=== PATIENT | female | born 1970 | race Caucasian/White ===

== ENCOUNTER 2017-05-04 18:14 | Emergency (ER) | payer OTHER, MEDICAID ==
[~2017-05-04] VITALS: Ht 157.5 cm; Wt 126.1 kg
[~2017-05-04 18:14] MED LIST: DEPAKOTE; OLAN15TA3 PO
[2017-05-04 18:30] VITALS: BP_SYST 156
--- NOTE | 2017-05-04 18:37 | NUR ---
Patient triaged and placed in waiting room. VSS and patient appears in no acute distress at this time. Accompanied by SELF, awaiting available bed, and MD notified of need for MSE.
--- NOTE | 2017-05-04 19:50 | NUR ---
Placed in room 06 . placed in chair for exam, patient refusing to sit in bed, states chair is a better position on comfort. Report given to OSKAR Rdz.
--- NOTE | 2017-05-04 20:00 | NUR ---
Patient AOx4, ambulatory, presents to ER with complaint of left knee pain x1 week. Patient states that she picked up a bag of groceries and a liter bottle of soda fell on her left knee. Swelling and discoloration noted to site. No other symptoms or complaints at this time.
--- NOTE | 2017-05-04 20:02 | NUR ---
ARMAND Candelario at bedside for medical evaluation.
[2017-05-04 20:40] VITALS: BP_SYST 148
--- NOTE | 2017-05-04 20:40 | NUR ---
Patient given written and verbal discharge instructions and verbalizes understanding. ER MD Dr. Candelario discussed with patient the results and treatment provided. Patient in stable condition. ID arm band removed. Patient educated on pain management and to follow up with PMD. Pain Scale 2/10, pt states pain is tolerable, ambulating w/ crutches and knee immobilizer in place. Opportunity for questions provided and answered.
== END 2017-05-04 20:40 | disposition home or self-care (01) ==
LOC: SED 18:14
DX: S80.02XA Contusion of left knee, initial encounter (principal); I10 Essential (primary) hypertension; F17.200 Nicotine dependence, unspecified, uncomplicated; Z86.59 Personal history of other mental and behavioral disorders; Z88.0 Allergy status to penicillin; Z71.6 Tobacco abuse counseling; W20.8XXA Other cause of strike by thrown, projected or falling object, initial encounter; Y93.89 Activity, other specified; Y92.89 Other specified places as the place of occurrence of the external cause; Y99.8 Other external cause status
CPT/HCPCS: 73564; 99284

== ENCOUNTER 2019-04-13 07:30 | Inpatient (IN) | payer OTHER, MEDICAID ==
[~2019-04-13] VITALS: Ht 154.9 cm; Wt 140.2 kg
[2019-04-13 07:38] VITALS: BP_SYST 150
[2019-04-13] MEDS ORDERED: NITROGLYCERIN 1 INCH (GM) OINT. TD ONE (07:45)
[2019-04-13] MEDS ORDERED: NITROGLYCERIN 250 ML IV ONE (07:45)
[2019-04-13] MEDS ORDERED: NITROGLYCERIN 0.4 MG TAB.SUBL SL ONE (07:45)
[2019-04-13] MEDS ORDERED: ASPIRIN 81 MG TAB.CHEW PO ONE (07:45)
[2019-04-13 08:34] LABS: BASOPHILS % (AUTO) 0.5 % (0.0-2.0); EOSINOPHILS # (AUTO) 0.1 K/uL (0.0-0.4); EOSINOPHILS % (AUTO) 1.7 % (0.0-4.0); HEMATOCRIT 38.5 % (36-48); HEMOGLOBIN 12.7 g/dL (12.0-16.0); LYMPHOCYTES # (AUTO) 1.8 K/uL (1.0-5.5); LYMPHOCYTES % (AUTO) 24.6 % (20.5-51.5); MEAN CORPUSCULAR HEMOGLOBIN 27 pg (27-31); MEAN CORPUSCULAR HGB CONC 33 % (32-36); MEAN CORPUSCULAR VOLUME 82 fL (79.0-98.0); MONOCYTES # (AUTO) 0.5 K/uL (0.0-1.0); MONOCYTES % (AUTO) 7.4 % (1.7-9.3); NEUTROPHILS # (AUTO) 4.9 K/uL (1.8-7.7); NEUTROPHILS % (AUTO) 65.8 % (40.0-70.0); PLATELET COUNT (AUTO) 277 K/uL (130-430); RED BLOOD CELL COUNT(AUTO) 4.67 MIL/uL (4.2-6.2); WHITE BLOOD COUNT (AUTO) 7.4 K/uL (4.8-10.8)
[2019-04-13 08:45] LABS: CALCIUM 9.9 mg/dL (8.4-11.0); CREATININE 0.54 mg/dL (0.55-1.30); POTASSIUM 4.3 mmol/L (3.5-5.1)
[2019-04-13 09:06] LABS: ALBUMIN 2.7 g/dL (3.4-4.8); TOTAL BILIRUBIN 0.1 mg/dL (0.0-1.0)
[2019-04-13] MEDS ORDERED: ATEN-168 PO (09:49)
[2019-04-13] MEDS ORDERED: PALI117D IM (09:49)
[2019-04-13] MEDS ORDERED: DIVA500T4 PO (09:49)
[2019-04-13] MEDS ORDERED: ACETAMINOPHEN 325 MG TABLET PO PRN (10:00)
[2019-04-13] MEDS ORDERED: NITROGLYCERIN 0.4 MG TAB.SUBL SL PRN (10:00)
[2019-04-13] MEDS ORDERED: ONDANSETRON HCL 4 MG/2 ML VIAL IVP PRN (10:00)
[2019-04-13] MEDS ORDERED: HYDROcodone/ACETAMIN 5-325 MG TAB (NORCO/ VICODIN) PO PRN (10:00)
[2019-04-13] MEDS ORDERED: HEPARIN SODIUM,PORCINE 5000 UNITS/ML VIAL SUBCUT ONE (10:15)
[2019-04-13] MEDS ORDERED: LISINOPRIL 5 MG TABLET PO ONE (10:30)
[2019-04-13 10:44] LABS: BILIRUBIN,URINE NEGATIVE (NEGATIVE); BLOOD, URINE NEGATIVE (NEGATIVE); CLARITY/URINE CLEAR (CLEAR); COLOR,URINE YELLOW (YELLOW); GLUCOSE,URINE NEGATIVE (NEGATIVE); KETONES,URINE NEGATIVE (NEGATIVE); LEUKOCYTE ESTERASE ,URINE NEGATIVE (NEGATIVE); NITRITE, URINE NEGATIVE (NEGATIVE); PROTEIN URINE NEGATIVE (NEGATIVE); UROBILINOGEN,URINE 0.2 (0.2-1.0)
[2019-04-13 11:32] LABS: PROTHROMBIN TIME 10.3 SECS (9.5-12.5)
[2019-04-13 11:46] LABS: FREE T4 (FREE THYROXINE) 0.8 ng/dl (0.8-1.5); PHOSPHORUS 2.8 mg/dL (2.7-4.5); THYROID STIMULATING HORMONE 0.72 uIu/mL (0.36-3.74)
[2019-04-13] MEDS ORDERED: DIVALPROEX SODIUM 500 MG TAB.SR.24H (DEPAKOTE ER) PO ONE (12:00)
[2019-04-13 14:40] VITALS: BP_SYST 133
[2019-04-13 15:32] VITALS: BP_SYST 178
[2019-04-13] MEDS ORDERED: DIVALPROEX SODIUM 500 MG TAB.SR.24H (DEPAKOTE ER) PO SCH (21:00)
[2019-04-13] MEDS ORDERED: DOCUSATE SODIUM 100 MG CAPSULE PO SCH (21:00)
[2019-04-13] MEDS ORDERED: HEPARIN SODIUM,PORCINE 5000 UNITS/ML VIAL SUBCUT SCH (21:00)
[2019-04-14] MEDS ORDERED: LISINOPRIL 5 MG TABLET PO SCH (09:00)
[2019-04-14] MEDS ORDERED: ATORVASTATIN 20 MG TABLET PO SCH (09:00)
[2019-04-14] MEDS ORDERED: ATENOLOL 50 MG TABLET (TENORMIN) PO SCH (09:00)
[2019-04-14] MEDS ORDERED: ASPIRIN 81 MG TAB.CHEW PO SCH (09:00)
[2019-05-13] MEDS ORDERED: PALIPERIDONE PALMITATE 117 MG IM SCH (06:30)
== END 2019-04-13 17:15 | disposition left against medical advice (07) | DRG 311 ==
LOC: SED 07:30 → STU 09:36
PROVIDERS: ADMIT Student in an Organized Health Care Education/Training Program; ATTEND Student in an Organized Health Care Education/Training Program
DX: I24.9 Acute ischemic heart disease, unspecified (principal); Z68.43 Body mass index [BMI] 50.0-59.9, adult; I10 Essential (primary) hypertension; F31.9 Bipolar disorder, unspecified; E66.01 Morbid (severe) obesity due to excess calories; F17.210 Nicotine dependence, cigarettes, uncomplicated; Z53.21 Procedure and treatment not carried out due to patient leaving prior to being seen by health care provider; Z79.899 Other long term (current) drug therapy; Z88.0 Allergy status to penicillin; Z88.1 Allergy status to other antibiotic agents
CPT/HCPCS: 36415; 71045; 80053; 81003; 82550-TC; 83036; 83735-TC; 83880; 84100-TC; 84439; 84443-TC; 84484; 85025; 85610-TC; 85730-TC; 93005; 99285; G0378; J1644; J3490